=== PATIENT | male | born 1990 | race Caucasian/White ===

== ENCOUNTER 2022-02-06 20:57 | Emergency (ER) | payer SELFPAY ==
[2022-02-06 21:15] VITALS: O2SAT 96
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
[2022-02-06] MEDS ORDERED: Lopressor 25MG Tab PO ONE (21:23)
[2022-02-06] MEDS ORDERED: Lopressor 25MG Tab ONE (21:27)
[2022-02-06 21:34] LABS: Absolute Neutrophil Ct (ANC) 3.58 x10^3/uL (1.4-6.9); Basophil (Absolute #) 0.03 x10^3/uL (0-0.4); Eosinophil % 2.8 % (0.00-5.0); Hematocrit 40.7 % (42-50); Hemoglobin 13.4 g/dL (12.5-18.0); Lymphocytes % 33.8 % (24.0-44.0); Mean Cell Volume 95.5 fL (78-100); Mean Corpuscular Hemoglobin 31.5 pg (26-32); Mean Corpuscular Hgb Concent. 32.9 g/dL (32-36); Mean Platelet Volume 8.8 fL (7.5-11.0); Monocyte (Absolute #) 0.89 x10^3/uL (0.0-1.3); Monocytes % 12.5 % (0.0-12.0); Neutrophil % 50.4 % (36.0-66.0); Platelet Count 293 x10^3/uL (150-450); Red Blood Count 4.26 x10^6/uL (4.1-5.6); Red Cell Distribution Width 13.2 % (11.5-14.0); White Blood Count 7.1 x10^3/uL (4.0-10.5)
[2022-02-06 21:46] LABS: ALBUMIN 4.2 g/dL (3.5-5.0); ALKALINE PHOSPHATASE 71 U/L (38-126); ANION GAP 12.1 MEQ/L (5-15); BLOOD UREA NITROGEN 25 mg/dL (9-20); CHLORIDE 106 mmol/L (98-107); Calcium 9.2 mg/dL (8.4-10.2); Carbon Dioxide 26 mmol/L (22-30); Creatinine 1 1.01 mg/dL (0.66-1.25); EST GLOMERULAR FILTRATION RATE > 60.0 ML/MIN; Glucose 91 mg/dL (74-106); Potassium 3.8 mmol/L (3.5-5.1); SGOT/AST 39 U/L (17-59); SGPT/ALT 21 U/L (0-50); SODIUM 140 mmol/L (137-145)
[2022-02-06 22:05] LABS: Appearance CLEAR (CLEAR); Bilirubin NEGATIVE (NEGATIVE); Dipstick done @ ? MAIN LAB; Glucose NEGATIVE (NEGATIVE); Ketones NEGATIVE (NEGATIVE); Nitrite NEGATIVE (NEGATIVE); Protein,Urine Dip NEGATIVE (Negative); RBC TRACE NON-HEM Ery/ul (0-5); Specific Gravity 1.025 (1.005-1.025); Urobilinogen 0.2 mg/dL (0-1)
[2022-02-06 22:06] LABS: Mucus SLIGHT /HPF (NEGATIVE)
[2022-02-06 22:07] LABS: Bacteria NONE SEEN /HPF (NEGATIVE); Urine Cultured Indicated? NO
[2022-02-06 22:08] VITALS: BP 110/74; PULSE 83
[2022-02-06 22:19] LABS: Barbiturate,Urine NEGATIVE (NEGATIVE); Benzodiazepine,Urine NEGATIVE (NEGATIVE); Cocaine,Urine NEGATIVE (NEGATIVE); Methadone,Urine NEGATIVE (NEGATIVE); Opiate,Urine NEGATIVE (NEGATIVE); PCP,Urine NEGATIVE (NEGATIVE); THC,Urine NEGATIVE (NEGATIVE)
[2022-02-06 23:09] LABS: Amphetamine,Urine POSITIVE (NEGATIVE)
== END 2022-02-06 22:21 | disposition left against medical advice (07) ==
LOC: ED 20:57
DX: F41.9 Anxiety disorder, unspecified (principal); Z59.00 Homelessness unspecified; R00.2 Palpitations; Z91.14 Patient's other noncompliance with medication regimen
CPT/HCPCS: 36415; 80053; 80307; 81015; 84484; 85025; 93005; 99284; A9270-GY